=== PATIENT | male | born 1950 | race Caucasian/White ===

== ENCOUNTER 2017-09-11 18:46 | Emergency (ER) | payer MEDICARE, BC ==
[2017-09-11] MEDS ORDERED: Sodium Chloride 0.9% 10 ML Syringe FLUSH PRN (19:38)
[2017-09-11] MEDS ORDERED: Ondansetron 4 MG/2 ML SDV IVPUSH ONE (19:38)
[2017-09-11] MEDS ORDERED: Sodium Chloride 0.9% 500 ML IV ONE (19:39)
[2017-09-11] MEDS ORDERED: HYDROmorphone 1 MG/ML Syringe IVPUSH ONE (19:40)
[2017-09-11] MEDS ORDERED: HYDROmorphone 0.5 MG/0.5 ML Syringe IVPUSH ONE ×2 (19:43→23:01)
--- NOTE | 2017-09-11 19:50 | EDM.PDOC ---
ED HPI GENERAL MEDICAL PROBLEM - General Chief Complaint: Abdominal Pain Stated Complaint: ABDOMINAL PAIN Time Seen by Provider: 09/11/17 19:29 Source of Information: Reports: Patient History Limitations: Reports: No Limitations - History of Present Illness INITIAL COMMENTS - FREE TEXT/NARRATIVE: 67-year-old male presents for evaluation treatment of abdominal pain, nausea and back pain. Patient is a poor historian and does not offer information willingly. Reports he's had abdominal pain for 10 days. States he was recently hospitalized in [place]. Discharged 2 days ago. Unclear if he was discharged or if he left on his own accord. States he was therefore an infection of his gallbladder. He is not currently on any antibiotics. Reports he is having abdominal pain in the lower abdomen currently. Also reports associated nausea. No fevers or vomiting. Reports he had 1 episode of diarrhea this morning. Patient states he is having back pain. Reports that he has chronic back pain. States that this is worse than normal. Duration: Day(s): (10) Location: Reports: Abdomen (lower abdomen), Back Abdominal Pain Score (Numeric/FACES): 7 - Related Data Allergies Allergy/AdvReac Type Severity Reaction Status Date / Time contrast dye Allergy Other Uncoded 09/11/17 19:08 Home Meds: Home Meds Gabapentin [Neurontin] 300 mg PO TID 09/11/17 [History] Levothyroxine. 09/11/17 [History] Sertraline [Zoloft] 50 mg PO DAILY 09/11/17 [History] Zolpidem Tartrate [Zolpidem Tartrate ER] 12.5 mg PO BEDTIME PRN 09/11/17 [ History] Social & Family History - Tobacco Use Smoking Status *Q: Never Smoker - Recreational Drug Use Recreational Drug Use: No ED ROS GENERAL - Review of Systems Review Of Systems: See Below Constitutional: Denies: Fever Cardiovascular: Denies: Chest Pain GI/Abdominal: Reports: Abdominal Pain (lower abdomen), Diarrhea (reports 1 episode of diarrhea), Nausea. Denies: Vomiting Musculoskeletal: Reports: Back Pain (lower back ) ED EXAM, GI/ABD - Physical Exam Exam: See Below Exam Limited By: No Limitations General Appearance: WD/WN, No Apparent Distress, Lethargic, Obese Throat/Mouth: Other (dry lips) Neck: Normal Inspection Respiratory/Chest: No Respiratory Distress, Lungs Clear, Normal Breath Sounds Cardiovascular: Normal Peripheral Pulses, Regular Rate, Rhythm, No Murmur GI/Abdominal Exam: Soft, Non-Tender Back Exam: Normal Inspection Neurological: Inattentive, Slow to Respond Skin Exam: Warm, Dry EKG INTERPRETATION EKG Date: 09/11/17 Time: 22:25 Rate (Beats/Min): 123 [place]: Normal P-Wave: Present QRS: Normal ST-T: Normal QT: Prolonged EKG Interpretation Comments: Sinus tachycardia at 123 bpm. Early "r" wave transition. T wave inversion V3. LAD -9 degrees. Diffuse abnormal repolarization pattern. QT mildly prolonged. Reviewed by myself and Dr. Nguyen. Course - Vital Signs Last Recorded V/S: Last Vital Signs Temp 36.3 C 09/11/17 19:08 Pulse 110 H 09/11/17 19:08 Resp 23 H 09/11/17 19:08 BP 132/99 H 09/11/17 19:08 Pulse Ox 99 09/11/17 19:08 - Orders/Labs/Meds Orders: Active Orders 24 hr Category Date Time Status EKG 12 Lead [EKG Documentation Completion] [RC] STAT Care 09/11/17 22:11 Active Peripheral IV Care [RC] . DIRECTED Care 09/11/17 19:39 Active Abdomen Ltd [US] Stat Exams 09/11/17 21:52 Taken Chest 1V Frontal [CR] Stat Exams 09/11/17 19:38 Taken CULTURE BLOOD [BC] Stat Lab 09/11/17 21:30 Received CULTURE BLOOD [BC] Stat Lab 09/11/17 21:50 Received CULTURE URINE [RM] Stat Lab 09/11/17 22:08 Received Sodium Chloride 0.9% [Normal Saline] 1,000 ml Med 09/11/17 21:13 Active IV ONETIME Sodium Chloride 0.9% [Saline Flush] Med 09/11/17 19:38 Active 10 ml FLUSH ASDIRECTED PRN Blood Culture x2 Reflex Set [OM.PC] Stat Oth 09/11/17 21:02 Ordered Peripheral IV Insertion Adult [OM.PC] Routine Oth 09/11/17 19:37 Ordered Medication Orders Sodium Chloride (Normal Saline) 1,000 mls @ 100 mls/hr IV ONETIME ONE Stop: 09/12/17 07:12 Sodium Chloride (Saline Flush) 10 ml FLUSH ASDIRECTED PRN PRN Reason: Keep Vein Open Last Admin: 09/11/17 19:10 Dose: 10 ml Labs: Laboratory Tests 09/11/17 09/11/17 09/11/17 Range/Units 19:17 19:17 19:17 WBC 14.60 H (4.23-9.07) K/mm3 RBC 4.62 L (4.63-6.08) M/mm3 Hgb 15.1 (13.7-17.5) gm/L Hct 42.6 (40.1-51.0) % MCV 92.2 (79.0-92.2) fl MCH 32.7 H (25.7-32.2) pg MCHC 35.4 (32.2-35.5) g/dl RDW Std Deviation 56.8 H (35.1-43.9) fL Plt Count 232 (163-337) K/mm3 MPV 9.9 (9.4-12.3) fl Neutrophils % (Manual) 86 H (40-60) % Band Neutrophils % 0 (0-10) % Lymphocytes % (Manual) 10 L (20-40) % Atypical Lymphs % 0 % Monocytes % (Manual) 4 (2-10) % Eosinophils % (Manual) 0 L (0.8-7.0) % Basophils % (Manual) 0 L (0.2-1.2) Platelet Estimate Adequate Plt Morphology Comment Normal RBC Morph Comment Normal Sodium 137 (136-145) mEq/L Potassium 3.3 L (3.5-5.1) mEq/L Chloride 98 (98-107) mEq/L Carbon Dioxide 27 (21-32) mEq/L Anion Gap 15.3 H (5-15) BUN 9 (7-18) mg/dL Creatinine 1.1 (0.7-1.3) mg/dL Est Cr Clr Drug Dosing 70.55 mL/min Estimated GFR (MDRD) > 60 (>60) mL/min BUN/Creatinine Ratio 8.2 L (14-18) Glucose 185 H (80-115) mg/dL Lactic Acid (0.4-2.0) mmol/L Calcium 9.6 (8.5-10.1) mg/dL Total Bilirubin 0.9 (0.2-1.0) mg/dL GGT 214 H (15-85) U/L AST 29 (15-37) U/L ALT 35 (16-63) U/L Alkaline Phosphatase 128 H (46-116) U/L C-Reactive Protein 6.1 H* (<1.0) mg/dL NT-Pro-B Natriuret Pep 88 (0-125) pg/mL Total Protein 7.7 (6.4-8.2) g/dl Albumin 3.3 L (3.4-5.0) g/dl Globulin 4.4 gm/dL Albumin/Globulin Ratio 0.8 L (1-2) Lipase 1093 H (73-393) U/L Urine Color (Yellow) Urine Appearance (Clear) Urine pH (5.0-8.0) Ur Specific [place] (1.005-1.030) Urine Protein (Negative) Urine Glucose (UA) (Negative) Urine Ketones (Negative) Urine Occult Blood (Negative) Urine Nitrite (Negative) Urine Bilirubin (Negative) Urine Urobilinogen (0.2-1.0) Ur Leukocyte Esterase (Negative) Urine RBC (0-5) /hpf Urine WBC (0-5) /hpf Ur Epithelial Cells (0-5) /hpf Amorphous Sediment (NOT SEEN) /hpf Urine Bacteria (FEW) /hpf Urine Mucus (FEW) /hpf Urine Opiates Screen (NEGATIVE) Ur Buprenorphine Scrn (NEGATIVE) Ur Oxycodone Screen (NEGATIVE) Urine Methadone Screen (NEGATIVE) Ur Propoxyphene Screen (NEGATIVE) Ur Barbiturates Screen (NEGATIVE) Ur Tricyclics Screen (NEGATIVE) Ur Phencyclidine Scrn (NEGATIVE) Ur Amphetamine Screen (NEGATIVE) U Methamphetamines Scrn (NEGATIVE) U Benzodiazepines Scrn (NEGATIVE) U Cocaine Metab Screen (NEGATIVE) U Marijuana (THC) Screen (NEGATIVE) Ethyl Alcohol 0.02 (0.00) gm% 09/11/17 09/11/17 09/11/17 Range/Units 21:50 22:08 22:08 WBC (4.23-9.07) K/mm3 RBC (4.63-6.08) M/mm3 Hgb (13.7-17.5) gm/L Hct (40.1-51.0) % MCV (79.0-92.2) fl MCH (25.7-32.2) pg MCHC (32.2-35.5) g/dl RDW Std Deviation (35.1-43.9) fL Plt Count (163-337) K/mm3 MPV (9.4-12.3) fl Neutrophils % (Manual) (40-60) % Band Neutrophils % (0-10) % Lymphocytes % (Manual) (20-40) % Atypical Lymphs % % Monocytes % (Manual) (2-10) % Eosinophils % (Manual) (0.8-7.0) % Basophils % (Manual) (0.2-1.2) Platelet Estimate Plt Morphology Comment RBC Morph Comment Sodium (136-145) mEq/L Potassium (3.5-5.1) mEq/L Chloride (98-107) mEq/L Carbon Dioxide (21-32) mEq/L Anion Gap (5-15) BUN (7-18) mg/dL Creatinine (0.7-1.3) mg/dL Est Cr Clr Drug Dosing mL/min Estimated GFR (MDRD) (>60) mL/min BUN/Creatinine Ratio (14-18) Glucose (80-115) mg/dL Lactic Acid 2.7 H (0.4-2.0) mmol/L Calcium (8.5-10.1) mg/dL Total Bilirubin (0.2-1.0) mg/dL GGT (15-85) U/L AST (15-37) U/L ALT (16-63) U/L Alkaline Phosphatase (46-116) U/L C-Reactive Protein (<1.0) mg/dL NT-Pro-B Natriuret Pep (0-125) pg/mL Total Protein (6.4-8.2) g/dl Albumin (3.4-5.0) g/dl Globulin gm/dL Albumin/Globulin Ratio (1-2) Lipase (73-393) U/L Urine Color [place] H (Yellow) Urine Appearance Turbid H (Clear) Urine pH 6.0 (5.0-8.0) Ur Specific [place] > or = 1.030 (1.005-1.030) Urine Protein 2+ H (Negative) Urine Glucose (UA) Negative (Negative) Urine Ketones Trace H (Negative) Urine Occult Blood Negative (Negative) Urine Nitrite Positive H (Negative) Urine Bilirubin 2+ H (Negative) Urine Urobilinogen 2.0 H (0.2-1.0) Ur Leukocyte Esterase Negative (Negative) Urine RBC Not seen (0-5) /hpf Urine WBC 0-5 (0-5) /hpf Ur Epithelial Cells 5-10 H (0-5) /hpf Amorphous Sediment Moderate H (NOT SEEN) /hpf Urine Bacteria Few (FEW) /hpf Urine Mucus Moderate H (FEW) /hpf Urine Opiates Screen Presumptive positive H (NEGATIVE) Ur Buprenorphine Scrn Negative (NEGATIVE) Ur Oxycodone Screen Negative (NEGATIVE) Urine Methadone Screen Presumptive positive H (NEGATIVE) Ur Propoxyphene Screen Negative (NEGATIVE) Ur Barbiturates Screen Negative (NEGATIVE) Ur Tricyclics Screen Negative (NEGATIVE) Ur Phencyclidine Scrn Negative (NEGATIVE) Ur Amphetamine Screen Negative (NEGATIVE) U Methamphetamines Scrn Negative (NEGATIVE) U Benzodiazepines Scrn Presumptive positive H (NEGATIVE) U Cocaine Metab Screen Negative (NEGATIVE) U Marijuana (THC) Screen Negative (NEGATIVE) Ethyl Alcohol (0.00) gm% Meds: Medications Generic Name Dose Route Start Last Admin Trade Name Freq PRN Reason Stop Dose Admin Sodium Chloride 1,000 mls @ 100 mls/hr 09/11/17 21:13 Normal Saline IV 09/12/17 07:12 ONETIME ONE Sodium Chloride 10 ml 09/11/17 19:38 09/11/17 19:10 Saline Flush FLUSH 10 ml ASDIRECTED PRN Administration Keep Vein Open Discontinued Medications Generic Name Dose Route Start Last Admin Trade Name Freq PRN Reason Stop Dose Admin Hydromorphone HCl 1 mg 09/11/17 19:40 Dilaudid IVPUSH 09/11/17 19:41 ONETIME ONE Hydromorphone HCl 0.5 mg 09/11/17 19:43 09/11/17 19:53 Dilaudid IVPUSH 09/11/17 19:44 0.5 mg ONETIME ONE Administration Hydromorphone HCl 0.5 mg 09/11/17 23:01 09/11/17 23:09 Dilaudid IVPUSH 09/11/17 23:02 0.5 mg ONETIME ONE Administration Sodium Chloride 500 mls @ 500 mls/hr 09/11/17 19:39 09/11/17 19:49 Normal Saline IV 09/11/17 20:38 500 mls/hr ONETIME ONE Administration Sodium Chloride 1,000 mls @ 999 mls/hr 09/11/17 23:08 09/11/17 23:46 Normal Saline IV 09/12/17 00:08 999 mls/hr ONETIME ONE Administration Piperacillin Sod/Tazobactam 100 mls @ 200 mls/hr 09/11/17 23:40 09/12/17 00: 08 Sod 4.5 gm/ Sodium Chloride IV 09/12/17 00:09 200 mls/hr ONETIME ONE Administration Ondansetron HCl 4 mg 09/11/17 19:38 09/11/17 19:50 Zofran IVPUSH 09/11/17 19:39 4 mg ONETIME ONE Administration - Radiology Interpretation Free Text/Narrative:: chest 1 view shows an elevated right hemidiaphragm. No acute intrathoracic process. CT of the abdomen and pelvis without contrast (contrast not given due to allergy ) impression per Dr. Ryan: 1. Markedly dilated gallbladder. Etiology not identified on this exam. Ultrasound could be considered to further evaluate. 2. Fatty infiltration within the liver. 3. Insterstital fibrosis and probable atelectasis within both lungs. 4. Other incidental findings. Head Ct without contrast impression per Dr. Ryan : 1. Mild senescent change. No acute intracranial abnormality. Ultrasound of the right upper quadrant abdomen impression for the ride 1. Gallbladder is distended, containing sludge. 2. Liver is probably fatty. - Re-Assessments/Exams Free Text/Narrative Re-Assessment/Exam: 09/11/17 22:40 Reports his abdominal pain has resolved. Continues to have back pain. I reviewed the imaging and lab results with patient. Given his distended gallbladder and his elevated lipase we should get a ultrasound of the right upper quadrant. He will likely need admission to the hospital either here [facility] or in [place]. Patient denies any alcohol use. He denies any alcohol use to me and states he seldom drinks. States He has not had anything today. etoh is 0.02 tonight He does report to me, after questioning about pain medication, that he was on methadone. He states he has not been on methadone for at least few days. I searched the patient on the [place] prescription drug registry. He has received prescriptions for zolpidem, Ativan and methadone. Last refill of methadone was for 180 tabs 10mg on 08-15-17. This was for 30 day supply. Last refill of Ativan was for 60 tabs 0.5 mg on 09-06-17. This is a 30 day supply. Last refill of zolpidem was for 30 tabs 12.5 mg on 09-06-17. This was a 30 day supply. Nursing staff reports he's brought a bag of medication in with him. He did not report any Ativan or methadone in them. He did have a bottle of zolpidem. There are 6 tabs left in it. As stated above he recently had a refill for 30 days planned 09-06-17. 09/12/17 00:21 I reviewed the labs, EKG and imaging results patient. At this point is unclear what exactly is causing his abdominal pain. Reports it is resolved. His lipase is elevated which is concerning for pancreatitis. Is also possible he is withdrawing from his methadone. Also possible he does have some they like acute cholecystitis although it is odd without having a fever or any current pain or jaundice. I discussed the case with Dr. Henry, hospitalist expenditure requisition clerk. She felt that he would require higher-level care given the complex use issues. I discussed the case with [facility] 1 call. They will call me back on them hospitalist available. 09/12/17 00:[address] Larson, hospitalist on-call at [facility]. He agrees to transfer the patient. He has received his IV Zosyn and 1 1/2 L of fluid. Plan will be to run fluids at 130 an hour. Will send by ground ambulance to [facility]. . Departure - Departure Time of Disposition: 00:52 Disposition: DC/Tfer to Acute Hospital 02 Condition: Poor Clinical Impression: Substance abuse, Pancreatitis - Discharge Information Referrals: Harpal Denson MD [Primary Care Provider] - Forms: ED Department Discharge Additional Instructions: Patient to go by ground ambulance to [facility]. Dr. Larson accepting. - My Orders Last 24 Hours: My Active Orders 09/11/17 19:37 Peripheral IV Insertion Adult [OM.PC] Routine 09/11/17 19:38 Chest 1V Frontal [CR] Stat Sodium Chloride 0.9% [Saline Flush] 10 ml FLUSH ASDIRECTED PRN 09/11/17 19:39 Peripheral IV Care [RC] . DIRECTED 09/11/17 21:02 Blood Culture x2 Reflex Set [OM.PC] Stat 09/11/17 21:13 Sodium Chloride 0.9% [Normal Saline] 1,000 ml IV ONETIME 09/11/17 21:30 CULTURE BLOOD [BC] Stat 09/11/17 21:50 CULTURE BLOOD [BC] Stat 09/11/17 21:52 Abdomen Ltd [US] Stat 09/11/17 22:08 CULTURE URINE [RM] Stat 09/11/17 22:11 EKG 12 Lead [EKG Documentation Completion] [RC] STAT - Assessment/Plan Last 24 Hours: My Active Orders 09/11/17 19:37 Peripheral IV Insertion Adult [OM.PC] Routine 09/11/17 19:38 Chest 1V Frontal [CR] Stat Sodium Chloride 0.9% [Saline Flush] 10 ml FLUSH ASDIRECTED PRN 09/11/17 19:39 Peripheral IV Care [RC] . DIRECTED 09/11/17 21:02 Blood Culture x2 Reflex Set [OM.PC] Stat 09/11/17 21:13 Sodium Chloride 0.9% [Normal Saline] 1,000 ml IV ONETIME 09/11/17 21:30 CULTURE BLOOD [BC] Stat 09/11/17 21:50 CULTURE BLOOD [BC] Stat 09/11/17 21:52 Abdomen Ltd [US] Stat 09/11/17 22:08 CULTURE URINE [RM] Stat 09/11/17 22:11 EKG 12 Lead [EKG Documentation Completion] [RC] STAT
[2017-09-11] MEDS ORDERED: Sodium Chloride 0.9% 1,000 ML IV ONE ×2 (21:13→23:08)
--- NOTE | 2017-09-11 21:26 | CT ---
CT abdomen and pelvis Technique: Multiple axial sections were obtained from above the dome of the diaphragm inferiorly to the pubic symphysis. No oral contrast has been given. Intravenous contrast not given due to history of allergy. Findings: Gallbladder is markedly dilated. Fatty infiltration is seen within the liver. No focal abnormality is appreciated within the liver. Spleen appears within normal limits. Visualized lung bases shows fibrosis and probable atelectasis. Adrenal glands show no nodule. Pancreas is unremarkable. Aorta shows atherosclerotic change without aneurysmal dilatation. No retroperitoneal adenopathy or mesenteric abnormalities are seen. No pelvic mass or adenopathy is seen. Mild diverticulosis without diverticulitis is seen within the sigmoid colon. Appendix not seen with certainty. Bone window settings were reviewed which shows scattered degenerative change throughout the spine with mild scoliosis. Small fat-containing umbilical hernia is incidentally noted. Impression: 1. Markedly dilated gallbladder. Etiology not identified on this exam. Ultrasound could be considered to further evaluate. 2. Fatty infiltration within the liver. 3. Interstitial fibrosis and probable atelectasis within both lung bases. 4. Other incidental findings. Diagnostic code #3
--- NOTE | 2017-09-11 21:26 | CT ---
Head CT Technique: Multiple axial sections through the brain were obtained. Intravenous contrast was not utilized. Comparison: No previous intracranial imaging is available. Findings: Ventricles along with basal cisterns and sulci over the convexities are mildly prominent. Minimal diminished density is noted within the periventricular white matter compatible with small vessel ischemic demyelination change. No other abnormal parenchymal densities are seen. No evidence of intracranial hemorrhage. No midline shift or mass effect is seen. Bone window settings were reviewed which shows the visualized sinuses to appear clear. No acute calvarial abnormality is seen. Impression: 1. Mild senescent change. No acute intracranial abnormality is otherwise seen. Diagnostic code #2
[2017-09-11] MEDS ORDERED: Piperacillin/Tazobactam 4.5 GM in Sodium Chloride 0.9% 100 ML IV ONE (23:40)
--- NOTE | 2017-09-12 07:38 | US ---
Limited abdominal ultrasound: Multiple real-time images of the right upper abdomen were obtained. Comparison: Previous CT abdomen and pelvis exam performed earlier on the same day. Technologist's note: Difficult study, limited due to bowel gas Dilated gallbladder is seen containing sludge. No gallbladder wall thickening is seen. Common bile duct not visualized due to bowel gas. Liver is also poorly seen but appears to be somewhat echogenic likely representing fatty infiltration. Right kidney shows no hydronephrosis or mass. Nonvisualized pancreas due to bowel gas. Impression: 1. Dilated gallbladder containing sludge. 2. Fatty infiltration within the liver. 3. Other portions of the abdomen not well seen due to bowel gas. Diagnostic code #3 Agree with preliminary report issued by [employer] ([employer] preliminary report dictated on 09/12/17, 12:22 AM Central Time)
--- NOTE | 2017-09-12 07:38 | CR ---
Chest: Portable view of the chest was obtained. Comparison: No prior chest x-ray. Heart size is normal. Mild tortuosity of the thoracic aorta is seen. Elevated right hemidiaphragm which is likely chronic. Minimal bibasilar atelectasis is seen. Lungs otherwise are clear. Degenerative spurring is noted within the spine. Impression: 1. Mild bibasilar atelectasis. 2. Other incidental findings. Nothing acute is appreciated. Diagnostic code #2
== END 2017-09-12 01:17 ==
LOC: JD.ED 18:46
DX: K85.90 Acute pancreatitis without necrosis or infection, unspecified (principal); F19.10 Other psychoactive substance abuse, uncomplicated; Z79.899 Other long term (current) drug therapy; Z91.041 Radiographic dye allergy status; R53.83 Other fatigue
CPT/HCPCS: 36415; 70450; 71010; 74176; 76705; 80053; 80306; 81001; 82977; 83605; 83690; 83880; 85025; 86140; 87040; 87086; 93005; 96361; 96365; 96375; 99285; G0480; J1170; J2405; J2543; J7030; J7040; J7050; P9612; 93010

== ENCOUNTER 2017-09-17 14:22 | Emergency (ER) | payer MEDICARE, BC ==
[2017-09-17] MEDS ORDERED: Sodium Chloride 0.9% 10 ML Syringe FLUSH PRN ×2 (14:34→16:13)
[2017-09-17] MEDS ORDERED: Naloxone 0.4 MG/ML SDV ONE (14:34)
--- NOTE | 2017-09-17 14:39 | EDM.PDOC ---
ED HPI GENERAL MEDICAL PROBLEM - General Stated Complaint: [facility] Time Seen by Provider: 09/17/17 14:25 Source of Information: Reports: EMS History Limitations: Reports: No Limitations - History of Present Illness INITIAL COMMENTS - FREE TEXT/NARRATIVE: Patient is a 67-year-old male who presents via ambulance with altered mental status. Patient recently had his gallbladder removed this last week in [place] discharged home this past Sunday. Per ambulance crew patient was at home with . Friends came over to see the patient and found him to be altered thus 911 was called with ambulance and law enforcement response. Patient was difficult to arouse. Would not answer questions appropriately. Per PD their is some concern that the patient is receiving inappropriate dosing of narcotics per and daughter. No further details available at this point. - Related Data Allergies Allergy/AdvReac Type Severity Reaction Status Date / Time No Known Allergies Allergy Verified 09/17/17 16:08 Home Meds: Home Meds Gabapentin [Neurontin] 300 mg PO TID 09/11/17 [History] Levothyroxine. 125 mcg PO DAILY 09/11/17 [History] Sertraline [Zoloft] 50 mg PO DAILY 09/11/17 [History] Past Medical History Cardiovascular History: Reports: High Cholesterol Respiratory History: Reports: COPD Gastrointestinal History: Reports: Cholelithiasis Genitourinary History: Reports: Other (See Below) Other Genitourinary History: hypogonadism Psychiatric History: Reports: Anxiety Endocrine/Metabolic History: Reports: Hypothyroidism - Infectious Disease History Infectious Disease History: Reports: C-Difficile - Past Surgical History GI Surgical History: Reports: Appendectomy Social & Family History - Tobacco Use Smoking Status *Q: Never Smoker - Recreational Drug Use Recreational Drug Use: No ED ROS GENERAL - Review of Systems Review Of Systems: Unable To Obtain - Physical Exam Exam: See Below Exam Limited By: Altered Mental Status General Appearance: Lethargic Eye Exam: Bilateral Eye: EOMI (Unable to test patient cannot follow commands), PERRL Ears: Normal External Exam Nose: Normal Inspection Throat/Mouth: Normal Voice, No Airway Compromise Neck: Normal Inspection, Supple Respiratory/Chest: No Respiratory Distress, Lungs Clear, Normal Breath Sounds, No Accessory Muscle Use Cardiovascular: Normal Peripheral Pulses, Tachycardia GI/Abdominal: Normal Bowel Sounds, Soft, No Organomegaly, Tender (Generalized throughout the abdomen with palpation. Patient has surgical incisions to his abdomen from recent gallbladder removal via laparoscopy this past week. All incisions are intact with no drainage or increased redness noted.) Neuro Exam (Abbreviated): Other (Eyes open lethargic moves all extremities does not follow commands completely, localizes pain with sternal rub. No facial droop , tongue deviation.) Back Exam: Normal Inspection Extremities: Normal Inspection, Non-Tender, No Pedal Edema. No: Leg Pain Skin Exam: Warm, Dry, Intact Course - Vital Signs Last Recorded V/S: Last Vital Signs Temp 97.6 F 09/17/17 14:38 Pulse 126 H 09/17/17 14:38 Resp 28 H 09/17/17 14:38 BP 114/86 09/17/17 14:38 Pulse Ox 99 09/17/17 14:38 - Orders/Labs/Meds Orders: Active Orders 24 hr Category Date Time Status EKG Documentation Completion [RC] STAT Care 09/17/17 14:34 Active Peripheral IV Care [RC] . DIRECTED Care 09/17/17 14:34 Active CULTURE BLOOD [BC] Stat Lab 09/17/17 15:20 Received CULTURE BLOOD [BC] Stat Lab 09/17/17 15:27 Received CULTURE URINE [RM] Stat Lab 09/17/17 15:43 Received Blood Culture x2 Reflex Set [OM.PC] Stat Oth 09/17/17 15:04 Ordered Peripheral IV Insertion Adult [OM.PC] Stat Oth 09/17/17 14:34 Ordered Labs: Laboratory Tests 09/17/17 09/17/17 09/17/17 Range/Units 14:30 14:30 14:30 WBC 19.21 H (4.23-9.07) K/mm3 Corrected WBC RBC 4.70 (4.63-6.08) M/mm3 Hgb 15.5 (13.7-17.5) gm/L Hct 43.6 (40.1-51.0) % MCV 92.8 H (79.0-92.2) fl MCH 33.0 H (25.7-32.2) pg MCHC 35.6 H (32.2-35.5) g/dl RDW Std Deviation 56.1 H (35.1-43.9) fL Plt Count 341 H (163-337) K/mm3 MPV 10.5 (9.4-12.3) fl Neut % (Auto) 83.2 H (34.0-67.9) % Lymph % (Auto) 7.3 L (21.8-53.1) % Schley % (Auto) 7.7 (5.3-12.2) % Eos % (Auto) 0.1 L (0.8-7.0) Baso % (Auto) 0.4 (0.1-1.2) % Neut # (Auto) 15.98 H (1.78-5.38) K/mm3 Lymph # (Auto) 1.41 (1.32-3.57) K/mm3 Schley # (Auto) 1.48 H (0.30-0.82) K/mm3 Eos # (Auto) 0.01 L (0.04-0.54) K/mm3 Baso # (Auto) 0.08 (0.01-0.08) K/mm3 Neutrophils % (Manual) Cancelled Band Neutrophils % Cancelled Lymphocytes % (Manual) Cancelled Atypical Lymphs % Cancelled Immat Monocytes % (Man) Cancelled Monocytes % (Manual) Cancelled Eosinophils % (Manual) Cancelled Basophils % (Manual) Cancelled Metamyelocytes % Cancelled Myelocytes % Cancelled Promyelocytes % Cancelled Blast Cells % Cancelled Plasma Cell % (Manual) Cancelled Immature Gran # Cancelled Absolute Neutrophils Cancelled Absolute Seg Neuts Cancelled Band Neutrophils # Cancelled Lymphocytes # (Manual) Cancelled Monocytes # (Manual) Cancelled Eosinophils # (Manual) Cancelled Basophils # (Manual) Cancelled Absolute Metamyelocyte Cancelled Absolute Myelocytes Cancelled Absolute Promyelocytes Cancelled Absolute Plasma Cells Cancelled Nucleated RBCs Cancelled Differential Comment Cancelled Manual Slide Review Abnormal smear Hypersegmented Neuts Cancelled Atypical Lymphocytes Cancelled Vacuolated Monocytes Cancelled Absolute Blast Cells Cancelled Toxic Granulation Cancelled Dohle Bodies Cancelled Pelger-Huet Cells Cancelled Megakaryocytic Frags Cancelled Roula Rods Cancelled WBC Morphology Comment Cancelled Platelet Estimate Cancelled Clumped Platelets Cancelled Giant Platelets Cancelled Plt Morphology Comment Cancelled Polychromasia Cancelled Hypochromasia Cancelled Poikilocytosis Cancelled Basophilic Stippling Cancelled Anisocytosis Cancelled Microcytosis Cancelled Macrocytosis Cancelled Spherocytes Cancelled Pappenheimer Bodies Cancelled Sickle Cells Cancelled Target Cells Cancelled Tear Drop Cells Cancelled Ovalocytes Cancelled Stomatocytes Cancelled Helmet Cells Cancelled Pulliam-Stannards Bodies Cancelled [place] Rings Cancelled Guide Rock Cells Cancelled Elliptocytes Cancelled Acanthocytes (Spur) Cancelled Rouleaux Cancelled Hemoglobin C Crystals Cancelled Schistocytes Cancelled RBC Morph Comment Cancelled Smear Path Review Cancelled Joe Bodies Cancelled PT 14.0 H (8.0-13.0) SECONDS INR 1.27 D-Dimer, Quantitative (0.19-0.59) mg/L Puncture Site ABG pH (7.35-7.45) ABG pCO2 (35.0-45.0) mmHg ABG pO2 (80.0-100.0) mmHg ABG HCO3 (22.0-26.0) meq/L ABG O2 Saturation (96.0-97.0) % ABG Base Excess (-2-2.0) A-a Gradient mmHg O2 Delivery Device FiO2 (21.00-100.00) % Sodium 138 (136-145) mEq/L Potassium 3.2 L (3.5-5.1) mEq/L Chloride 97 L (98-107) mEq/L Carbon Dioxide 27 (21-32) mEq/L Anion Gap 17.2 H (5-15) BUN 30 H (7-18) mg/dL Creatinine 1.7 H (0.7-1.3) mg/dL Est Cr Clr Drug Dosing 45.65 mL/min Estimated GFR (MDRD) 40 (>60) mL/min BUN/Creatinine Ratio 17.6 (14-18) Glucose 189 H (80-115) mg/dL POC Glucose (80-115) mg/dL Lactic Acid (0.4-2.0) mmol/L Calcium 9.7 (8.5-10.1) mg/dL Total Bilirubin 1.5 H (0.2-1.0) mg/dL AST 35 (15-37) U/L ALT 35 (16-63) U/L Alkaline Phosphatase 126 H (46-116) U/L Troponin I 0.118 H* (0.00-0.056) ng/mL C-Reactive Protein 4.3 H* (<1.0) mg/dL NT-Pro-B Natriuret Pep (0-125) pg/mL Total Protein 8.1 (6.4-8.2) g/dl Albumin 3.6 (3.4-5.0) g/dl Globulin 4.5 gm/dL Albumin/Globulin Ratio 0.8 L (1-2) Lipase 2645 H (73-393) U/L TSH 3rd Generation 2.838 (0.358-3.74) uIU/mL Urine Color (Yellow) Urine Appearance (Clear) Urine pH (5.0-8.0) Ur Specific [place] (1.005-1.030) Urine Protein (Negative) Urine Glucose (UA) (Negative) Urine Ketones (Negative) Urine Occult Blood (Negative) Urine Nitrite (Negative) Urine Bilirubin (Negative) Urine Urobilinogen (0.2-1.0) Ur Leukocyte Esterase (Negative) Urine RBC (0-5) /hpf Urine WBC (0-5) /hpf Ur Epithelial Cells (0-5) /hpf Urine Bacteria (FEW) /hpf Urine Mucus (FEW) /hpf Urine Opiates Screen (NEGATIVE) Ur Buprenorphine Scrn (NEGATIVE) Ur Oxycodone Screen (NEGATIVE) Urine Methadone Screen (NEGATIVE) Ur Propoxyphene Screen (NEGATIVE) Ur Barbiturates Screen (NEGATIVE) Ur Tricyclics Screen (NEGATIVE) Ur Phencyclidine Scrn (NEGATIVE) Ur Amphetamine Screen (NEGATIVE) U Methamphetamines Scrn (NEGATIVE) U Benzodiazepines Scrn (NEGATIVE) U Cocaine Metab Screen (NEGATIVE) U Marijuana (THC) Screen (NEGATIVE) Ethyl Alcohol 0.00 (0.00) gm% Slides for Path Review Cancelled 09/17/17 09/17/17 09/17/17 Range/Units 14:30 14:30 14:30 WBC 19.21 H (4.23-9.07) K/mm3 Corrected WBC Premium [employer]itor RBC 4.70 (4.63-6.08) M/mm3 Hgb 15.5 (13.7-17.5) gm/L Hct 43.6 (40.1-51.0) % MCV 92.8 H (79.0-92.2) fl MCH 33.0 H (25.7-32.2) pg MCHC 35.6 H (32.2-35.5) g/dl RDW Std Deviation 56.1 H (35.1-43.9) fL Plt Count 341 H (163-337) K/mm3 MPV 10.5 (9.4-12.3) fl Neut % (Auto) (34.0-67.9) % Lymph % (Auto) (21.8-53.1) % Schley % (Auto) (5.3-12.2) % Eos % (Auto) (0.8-7.0) Baso % (Auto) (0.1-1.2) % Neut # (Auto) (1.78-5.38) K/mm3 Lymph # (Auto) (1.32-3.57) K/mm3 Schley # (Auto) (0.30-0.82) K/mm3 Eos # (Auto) (0.04-0.54) K/mm3 Baso # (Auto) (0.01-0.08) K/mm3 Neutrophils % (Manual) 86 H Band Neutrophils % 0 Lymphocytes % (Manual) 6 L Atypical Lymphs % 0 Immat Monocytes % (Man) Premium Auditor Monocytes % (Manual) 8 Eosinophils % (Manual) 0 L Basophils % (Manual) 0 L Metamyelocytes % Premium [employer]itor Myelocytes % Premium [employer]itor Promyelocytes % [employer]itor Blast Cells % Premium [employer]itor Plasma Cell % (Manual) Premium Auditor Immature Gran # Premium [employer]itor Absolute Neutrophils Premium Auditor Absolute Seg Neuts Premium Auditor Band Neutrophils # Premium [employer]itor Lymphocytes # (Manual) Premium Auditor Monocytes # (Manual) Premium Auditor Eosinophils # (Manual) Premium Auditor Basophils # (Manual) Premium Auditor Absolute Metamyelocyte Premium Auditor Absolute Myelocytes Premium Auditor Absolute Promyelocytes Premium Auditor Absolute Plasma Cells Premium Auditor Nucleated RBCs Premium Auditor Differential Comment Premium Auditor Manual Slide Review Hypersegmented Neuts Premium Auditor Atypical Lymphocytes Premium Auditor Vacuolated Monocytes Premium Auditor Absolute Blast Cells Premium [employer]itor Toxic Granulation Few Dohle Bodies Premium [employer]itor Pelger-Huet Cells Premium [employer]itor Megakaryocytic Frags Premium [employer]itor Roula Rods Premium [employer]itor WBC Morphology Comment Premium [employer]itor Platelet Estimate Adequate Clumped Platelets Premium Auditor Giant Platelets Premium [employer]itor Plt Morphology Comment Premium [employer]itor Polychromasia Few Hypochromasia Premium [employer]itor Poikilocytosis 1+ slight Basophilic Stippling Premium [employer]itor Anisocytosis 1+ slight Microcytosis 1+ slight Macrocytosis Premium [employer]itor Spherocytes Premium [employer]itor Pappenheimer Bodies [employer] Sickle Cells Premium [employer]itor Target Cells Premium Auditor Tear Drop Cells Premium Auditor Ovalocytes Premium [employer]itor Stomatocytes Premium Auditor Helmet Cells Premium Auditor Pulliam-Stannards Bodies Premium Auditor [place] Rings Premium Auditor Kt Cells Premium Auditor Elliptocytes Premium [employer]itor Acanthocytes (Spur) Premium Auditor Rouleaux Premium [employer]itor Hemoglobin C Crystals [employer] Schistocytes Premium [employer]itor RBC Morph Comment Premium [employer] Smear Path Review Premium Auditor Joe Bodies Premium [employer]itor PT (8.0-13.0) SECONDS INR D-Dimer, Quantitative 1.75 H (0.19-0.59) mg/L Puncture Site ABG pH (7.35-7.45) ABG pCO2 (35.0-45.0) mmHg ABG pO2 (80.0-100.0) mmHg ABG HCO3 (22.0-26.0) meq/L ABG O2 Saturation (96.0-97.0) % ABG Base Excess (-2-2.0) A-a Gradient mmHg O2 Delivery Device FiO2 (21.00-100.00) % Sodium (136-145) mEq/L Potassium (3.5-5.1) mEq/L Chloride (98-107) mEq/L Carbon Dioxide (21-32) mEq/L Anion Gap (5-15) BUN (7-18) mg/dL Creatinine (0.7-1.3) mg/dL Est Cr Clr Drug Dosing mL/min Estimated GFR (MDRD) (>60) mL/min BUN/Creatinine Ratio (14-18) Glucose (80-115) mg/dL POC Glucose (80-115) mg/dL Lactic Acid (0.4-2.0) mmol/L Calcium (8.5-10.1) mg/dL Total Bilirubin (0.2-1.0) mg/dL AST (15-37) U/L ALT (16-63) U/L Alkaline Phosphatase (46-116) U/L Troponin I (0.00-0.056) ng/mL C-Reactive Protein (<1.0) mg/dL NT-Pro-B Natriuret Pep 823 H (0-125) pg/mL Total Protein (6.4-8.2) g/dl Albumin (3.4-5.0) g/dl Globulin gm/dL Albumin/Globulin Ratio (1-2) Lipase (73-393) U/L TSH 3rd Generation (0.358-3.74) uIU/mL Urine Color (Yellow) Urine Appearance (Clear) Urine pH (5.0-8.0) Ur Specific [place] (1.005-1.030) Urine Protein (Negative) Urine Glucose (UA) (Negative) Urine Ketones (Negative) Urine Occult Blood (Negative) Urine Nitrite (Negative) Urine Bilirubin (Negative) Urine Urobilinogen (0.2-1.0) Ur Leukocyte Esterase (Negative) Urine RBC (0-5) /hpf Urine WBC (0-5) /hpf Ur Epithelial Cells (0-5) /hpf Urine Bacteria (FEW) /hpf Urine Mucus (FEW) /hpf Urine Opiates Screen (NEGATIVE) Ur Buprenorphine Scrn (NEGATIVE) Ur Oxycodone Screen (NEGATIVE) Urine Methadone Screen (NEGATIVE) Ur Propoxyphene Screen (NEGATIVE) Ur Barbiturates Screen (NEGATIVE) Ur Tricyclics Screen (NEGATIVE) Ur Phencyclidine Scrn (NEGATIVE) Ur Amphetamine Screen (NEGATIVE) U Methamphetamines Scrn (NEGATIVE) U Benzodiazepines Scrn (NEGATIVE) U Cocaine Metab Screen (NEGATIVE) U Marijuana (THC) Screen (NEGATIVE) Ethyl Alcohol (0.00) gm% Slides for Path Review Premium Auditor 09/17/17 09/17/17 09/17/17 Range/Units 14:32 15:20 15:27 WBC (4.23-9.07) K/mm3 Corrected WBC RBC (4.63-6.08) M/mm3 Hgb (13.7-17.5) gm/L Hct (40.1-51.0) % MCV (79.0-92.2) fl MCH (25.7-32.2) pg MCHC (32.2-35.5) g/dl RDW Std Deviation (35.1-43.9) fL Plt Count (163-337) K/mm3 MPV (9.4-12.3) fl Neut % (Auto) (34.0-67.9) % Lymph % (Auto) (21.8-53.1) % Schley % (Auto) (5.3-12.2) % Eos % (Auto) (0.8-7.0) Baso % (Auto) (0.1-1.2) % Neut # (Auto) (1.78-5.38) K/mm3 Lymph # (Auto) (1.32-3.57) K/mm3 Schley # (Auto) (0.30-0.82) K/mm3 Eos # (Auto) (0.04-0.54) K/mm3 Baso # (Auto) (0.01-0.08) K/mm3 Neutrophils % (Manual) Band Neutrophils % Lymphocytes % (Manual) Atypical Lymphs % Immat Monocytes % (Man) Monocytes % (Manual) Eosinophils % (Manual) Basophils % (Manual) Metamyelocytes % Myelocytes % Promyelocytes % Blast Cells % Plasma Cell % (Manual) Immature Gran # Absolute Neutrophils Absolute Seg Neuts Band Neutrophils # Lymphocytes # (Manual) Monocytes # (Manual) Eosinophils # (Manual) Basophils # (Manual) Absolute Metamyelocyte Absolute Myelocytes Absolute Promyelocytes Absolute Plasma Cells Nucleated RBCs Differential Comment Manual Slide Review Hypersegmented Neuts Atypical Lymphocytes Vacuolated Monocytes Absolute Blast Cells Toxic Granulation Dohle Bodies Pelger-Huet Cells Megakaryocytic Frags Roula Rods WBC Morphology Comment Platelet Estimate Clumped Platelets Giant Platelets Plt Morphology Comment Polychromasia Hypochromasia Poikilocytosis Basophilic Stippling Anisocytosis Microcytosis Macrocytosis Spherocytes Pappenheimer Bodies Sickle Cells Target Cells Tear Drop Cells Ovalocytes Stomatocytes Helmet Cells Pulliam-Stannards Bodies [place] Rings Guide Rock Cells Elliptocytes Acanthocytes (Spur) Rouleaux Hemoglobin C Crystals Schistocytes RBC Morph Comment Smear Path Review Joe Bodies PT (8.0-13.0) SECONDS INR D-Dimer, Quantitative (0.19-0.59) mg/L Puncture Site Lt radial ABG pH 7.56 H (7.35-7.45) ABG pCO2 21.5 L (35.0-45.0) mmHg ABG pO2 73.0 L (80.0-100.0) mmHg ABG HCO3 19.1 L (22.0-26.0) meq/L ABG O2 Saturation 95.9 L (96.0-97.0) % ABG Base Excess -1.0 (-2-2.0) A-a Gradient 34 mmHg O2 Delivery Device Room air FiO2 21.00 (21.00-100.00) % Sodium (136-145) mEq/L Potassium (3.5-5.1) mEq/L Chloride (98-107) mEq/L Carbon Dioxide (21-32) mEq/L Anion Gap (5-15) BUN (7-18) mg/dL Creatinine (0.7-1.3) mg/dL Est Cr Clr Drug Dosing mL/min Estimated GFR (MDRD) (>60) mL/min BUN/Creatinine Ratio (14-18) Glucose (80-115) mg/dL POC Glucose 189 H (80-115) mg/dL Lactic Acid 2.7 H (0.4-2.0) mmol/L Calcium (8.5-10.1) mg/dL Total Bilirubin (0.2-1.0) mg/dL AST (15-37) U/L ALT (16-63) U/L Alkaline Phosphatase (46-116) U/L Troponin I (0.00-0.056) ng/mL C-Reactive Protein (<1.0) mg/dL NT-Pro-B Natriuret Pep (0-125) pg/mL Total Protein (6.4-8.2) g/dl Albumin (3.4-5.0) g/dl Globulin gm/dL Albumin/Globulin Ratio (1-2) Lipase (73-393) U/L TSH 3rd Generation (0.358-3.74) uIU/mL Urine Color (Yellow) Urine Appearance (Clear) Urine pH (5.0-8.0) Ur Specific [place] (1.005-1.030) Urine Protein (Negative) Urine Glucose (UA) (Negative) Urine Ketones (Negative) Urine Occult Blood (Negative) Urine Nitrite (Negative) Urine Bilirubin (Negative) Urine Urobilinogen (0.2-1.0) Ur Leukocyte Esterase (Negative) Urine RBC (0-5) /hpf Urine WBC (0-5) /hpf Ur Epithelial Cells (0-5) /hpf Urine Bacteria (FEW) /hpf Urine Mucus (FEW) /hpf Urine Opiates Screen (NEGATIVE) Ur Buprenorphine Scrn (NEGATIVE) Ur Oxycodone Screen (NEGATIVE) Urine Methadone Screen (NEGATIVE) Ur Propoxyphene Screen (NEGATIVE) Ur Barbiturates Screen (NEGATIVE) Ur Tricyclics Screen (NEGATIVE) Ur Phencyclidine Scrn (NEGATIVE) Ur Amphetamine Screen (NEGATIVE) U Methamphetamines Scrn (NEGATIVE) U Benzodiazepines Scrn (NEGATIVE) U Cocaine Metab Screen (NEGATIVE) U Marijuana (THC) Screen (NEGATIVE) Ethyl Alcohol (0.00) gm% Slides for Path Review 09/17/17 09/17/17 Range/Units 15:43 15:43 WBC (4.23-9.07) K/mm3 Corrected WBC RBC (4.63-6.08) M/mm3 Hgb (13.7-17.5) gm/L Hct (40.1-51.0) % MCV (79.0-92.2) fl MCH (25.7-32.2) pg MCHC (32.2-35.5) g/dl RDW Std Deviation (35.1-43.9) fL Plt Count (163-337) K/mm3 MPV (9.4-12.3) fl Neut % (Auto) (34.0-67.9) % Lymph % (Auto) (21.8-53.1) % Schley % (Auto) (5.3-12.2) % Eos % (Auto) (0.8-7.0) Baso % (Auto) (0.1-1.2) % Neut # (Auto) (1.78-5.38) K/mm3 Lymph # (Auto) (1.32-3.57) K/mm3 Schley # (Auto) (0.30-0.82) K/mm3 Eos # (Auto) (0.04-0.54) K/mm3 Baso # (Auto) (0.01-0.08) K/mm3 Neutrophils % (Manual) Band Neutrophils % Lymphocytes % (Manual) Atypical Lymphs % Immat Monocytes % (Man) Monocytes % (Manual) Eosinophils % (Manual) Basophils % (Manual) Metamyelocytes % Myelocytes % Promyelocytes % Blast Cells % Plasma Cell % (Manual) Immature Gran # Absolute Neutrophils Absolute Seg Neuts Band Neutrophils # Lymphocytes # (Manual) Monocytes # (Manual) Eosinophils # (Manual) Basophils # (Manual) Absolute Metamyelocyte Absolute Myelocytes Absolute Promyelocytes Absolute Plasma Cells Nucleated RBCs Differential Comment Manual Slide Review Hypersegmented Neuts Atypical Lymphocytes Vacuolated Monocytes Absolute Blast Cells Toxic Granulation Dohle Bodies Pelger-Huet Cells Megakaryocytic Frags Roula Rods WBC Morphology Comment Platelet Estimate Clumped Platelets Giant Platelets Plt Morphology Comment Polychromasia Hypochromasia Poikilocytosis Basophilic Stippling Anisocytosis Microcytosis Macrocytosis Spherocytes Pappenheimer Bodies Sickle Cells Target Cells Tear Drop Cells Ovalocytes Stomatocytes Helmet Cells Pulliam-Stannards Bodies [place] Rings Kt Cells Elliptocytes Acanthocytes (Spur) Rouleaux Hemoglobin C Crystals Schistocytes RBC Morph Comment Smear Path Review Joe Bodies PT (8.0-13.0) SECONDS INR D-Dimer, Quantitative (0.19-0.59) mg/L Puncture Site ABG pH (7.35-7.45) ABG pCO2 (35.0-45.0) mmHg ABG pO2 (80.0-100.0) mmHg ABG HCO3 (22.0-26.0) meq/L ABG O2 Saturation (96.0-97.0) % ABG Base Excess (-2-2.0) A-a Gradient mmHg O2 Delivery Device FiO2 (21.00-100.00) % Sodium (136-145) mEq/L Potassium (3.5-5.1) mEq/L Chloride (98-107) mEq/L Carbon Dioxide (21-32) mEq/L Anion Gap (5-15) BUN (7-18) mg/dL Creatinine (0.7-1.3) mg/dL Est Cr Clr Drug Dosing mL/min Estimated GFR (MDRD) (>60) mL/min BUN/Creatinine Ratio (14-18) Glucose (80-115) mg/dL POC Glucose (80-115) mg/dL Lactic Acid (0.4-2.0) mmol/L Calcium (8.5-10.1) mg/dL Total Bilirubin (0.2-1.0) mg/dL AST (15-37) U/L ALT (16-63) U/L Alkaline Phosphatase (46-116) U/L Troponin I (0.00-0.056) ng/mL C-Reactive Protein (<1.0) mg/dL NT-Pro-B Natriuret Pep (0-125) pg/mL Total Protein (6.4-8.2) g/dl Albumin (3.4-5.0) g/dl Globulin gm/dL Albumin/Globulin Ratio (1-2) Lipase (73-393) U/L TSH 3rd Generation (0.358-3.74) uIU/mL Urine Color Yellow (Yellow) Urine Appearance Clear (Clear) Urine pH 7.0 (5.0-8.0) Ur Specific [place] 1.025 (1.005-1.030) Urine Protein 2+ H (Negative) Urine Glucose (UA) Negative (Negative) Urine Ketones 2+ H (Negative) Urine Occult Blood Negative (Negative) Urine Nitrite Negative (Negative) Urine Bilirubin 2+ H (Negative) Urine Urobilinogen 2.0 H (0.2-1.0) Ur Leukocyte Esterase Negative (Negative) Urine RBC 0-5 (0-5) /hpf Urine WBC 0-5 (0-5) /hpf Ur Epithelial Cells 0-5 (0-5) /hpf Urine Bacteria Few (FEW) /hpf Urine Mucus Not seen (FEW) /hpf Urine Opiates Screen Presumptive positive H (NEGATIVE) Ur Buprenorphine Scrn Negative (NEGATIVE) Ur Oxycodone Screen Negative (NEGATIVE) Urine Methadone Screen Presumptive positive H (NEGATIVE) Ur Propoxyphene Screen Negative (NEGATIVE) Ur Barbiturates Screen Negative (NEGATIVE) Ur Tricyclics Screen Negative (NEGATIVE) Ur Phencyclidine Scrn Negative (NEGATIVE) Ur Amphetamine Screen Negative (NEGATIVE) U Methamphetamines Scrn Negative (NEGATIVE) U Benzodiazepines Scrn Presumptive positive H (NEGATIVE) U Cocaine Metab Screen Negative (NEGATIVE) U Marijuana (THC) Screen Negative (NEGATIVE) Ethyl Alcohol (0.00) gm% Slides for Path Review Meds: Medications Discontinued Medications Generic Name Dose Route Start Last Admin Trade Name Freq PRN Reason Stop Dose Admin Sodium Chloride 1,000 mls @ 150 mls/hr 09/17/17 14:45 09/17/17 15:21 Normal Saline IV 150 mls/hr ASDIRECTED CASSIDY Administration Sodium Chloride 500 mls @ 999 mls/hr 09/17/17 15:23 09/17/17 18:00 Normal Saline IV 09/17/17 15:53 999 mls/hr .BOLUS ONE Administration Sodium Chloride 100 mls @ 65 mls/hr 09/17/17 16:15 09/17/17 16:48 Normal Saline IV 40 mls/hr ASDIRECTED CASSIDY Administration Levofloxacin/Dextrose 750 mg/ 150 mls @ 100 mls/hr 09/17/17 17:07 Premix IV 09/17/17 18:36 ONETIME ONE Meropenem 1 gm/ Sodium 100 mls @ 200 mls/hr 09/17/17 17:50 09/17/17 18:41 Chloride IV 09/17/17 18:19 200 mls/hr ONETIME ONE Administration Sodium Chloride 500 mls @ 999 mls/hr 09/17/17 17:50 Normal Saline IV 09/17/17 18:20 .BOLUS ONE Vancomycin HCl 1 gm/ Sodium 250 mls @ 250 mls/hr 09/17/17 17:50 09/17/17 19: 15 Chloride IV 09/17/17 18:49 Not Given ONETIME ONE Sodium Chloride 500 mls @ 999 mls/hr 09/17/17 17:51 Normal Saline IV 09/17/17 18:21 .BOLUS ONE Sodium Chloride Confirm 09/17/17 18:50 09/17/17 19:15 Normal Saline Administered 09/17/17 18:51 Not Given Dose 250 mls @ as directed .ROUTE .STK-MED ONE Vancomycin HCl 1 gm/ Sodium 250 mls @ 250 mls/hr 09/17/17 18:50 09/17/17 18: 55 Chloride IV 09/17/17 19:49 250 mls/hr ONETIME ONE Administration Iopamidol 100 ml 09/17/17 16:13 09/17/17 16:48 Isovue-370 (76%) IVPUSH 09/17/17 16:14 100 ml ONETIME ONE Administration Iopamidol 25 ml 09/17/17 16:46 09/17/17 16:48 Isovue-370 (76%) IVPUSH 09/17/17 16:47 25 ml ONETIME ONE Administration Naloxone HCl Confirm 09/17/17 14:34 09/17/17 14:39 Narcan Administered 09/17/17 14:35 0.4 mg Dose Administration 0.4 mg .ROUTE .STK-MED ONE Naloxone HCl 1 mg 09/17/17 15:09 09/17/17 15:24 Narcan IVPUSH 09/17/17 15:10 Not Given ONETIME ONE Naloxone HCl Confirm 09/17/17 15:20 09/17/17 15:23 Narcan Administered 09/17/17 15:21 1 mg Dose Administration 2 mg .ROUTE .STK-MED ONE Sodium Chloride 10 ml 09/17/17 14:34 Saline Flush FLUSH ASDIRECTED PRN Keep Vein Open Sodium Chloride 10 ml 09/17/17 16:13 09/17/17 16:48 Saline Flush FLUSH 10 ml ONETIME PRN Administration IV FLUSH Vancomycin HCl Confirm 09/17/17 18:49 09/17/17 19:15 Vancocin Administered 09/17/17 18:50 Not Given Dose 1 gm .ROUTE .STK-MED ONE - Re-Assessments/Exams Free Text/Narrative Re-Assessment/Exam: Vital signs 114/86 heart rate 114, 98% on room air. On examination patient's eyes are open localizes painful stimuli to the chest with intermittent ability to answer questions. No facial droop, no tongue deviation, eyes are PERRL, moves all extremities. Neurological testing limited secondary to current condition. Suspect this is related to opioid use. Narcan 0.4 mg has been ordered IV. Initial labs and studies include CBC, chem 14, CRP, d-dimer, urine drug tox, serum EtOH, coag studies, lipase, troponin, TSH, UA, head CT without contrast, EKG, chest x-ray, and abdominal x-ray. D-dimer will be obtained with patient's recent history of surgery on hospitalization with tachycardia and elevated breathing rate. 1442 Narcan 0.4 mg IVP pushed with really no mental status change. CT of the head is pending. Blood sugar 189. I will order ABG and blood cultures x 2. 09/17/17 15:09 CT of the head did not reveal any acute intracranial hemorrhage. Final interpretation pending. Due to patient's mentation status with no improvement with narcan 0.4 mg IVP will order an additional 1 mg of Narcan. Their is suspicion that patient has been given inappropriate administeration of narcotics by his . Law enforcement is investigating. EKG obtained today is Sinus tachycardia [address] depression in the lateral leads and QTc of 510. In comparison to previous EKG obtained September 11, 2017 revealed changes today in the lateral leads are more prominent. Reviewed previous ED visit dated 09/11/2017. Patient admitted being on methadone for the past few days. Patient has a prescription for zolpidem, Ativan, and methadone. Last refill of methadone was 180 tabs 10 mg on August 15, 2017. This was a 30 day supply. Last Ativan refill was for 60 tabs 0.5 mg 09/06/17 this was for 30 day supply as well. Last refill for zolpidem was 30 tablet 12.5 mg on 09-21 this with a 30 supply as well. Patient did not report Ativan or methadone use as well. He had 6 bottles of zolpidem tabs remaining in the bottle. As stated patient had refill for 30 days planned 09/06/2017. Again patient on admission to the ED does not provide position bottles for methadone or Ativan. Labs reviewed: White blood cell count 19.21, hemoglobin 15.5, with a count 341, neutrophil percent is 83.2, neutrophil number is 15.98, coag studies PT 14, INR 1.27, d-dimer 1.75, potassium 3.2, chloride 27, AG 17.2, BUN 30, creatinine 1.7 , glucose 189, alk phosphatase 126, troponin 0.118, CRP 4.3, TSH 2.83, lipase pending, serum EtOH 0.00. Unable to perform CT angiogram due to presumably IV contrast allergy. Urine drug tox and UA pending. I did order 500 bolus of saline. Patient does not appear to be fluid overloaded. ProBNP is pending. Chest x-ray revealed poor inspiratory effort, bibasilar atelectasis, no acute findings noted. Compared to previous chest x-ray with no new changes. Final interpretation is pending. 09/17/17 15:36 Per nursing staff 1 mg of Narcan did not improve his mentation. Patient did have episode of loose stool unable to catch. He does have history of C. difficile. Per nursing stool did not appear to be concerning for C. difficile. 09/17/17 16:02 Will obtain CTA of the chest abdomen and pelvis. I contacted [facility] one call and they reviewed previous discharged summary. Patient was discharged with methadone and Ambien along with Celebrex and Synthroid. Allergies to IV and oral contrast causes kidney problems. No anaphylaxis. Spoke with Dr. Garay institutional aide Hospitalists to review recent hospitalization and discuss patients current condition. Agrees to proceed with CTA of the chest/ abdomen/pelvis although kidney issues would be appropriate. HR trending downward 103 after initial bolus of fluid. WIll obtain manual diff to faciliate decision for starting broad spectrum antibiotics. Discussed this with Dr. Luna he agrees on the fence at this time if infectious or not. I am concerned patient is septic. Pro BNP 823 which is a increase from 88 from 09/11/2017. UA revealed orange color, turbid, sick ready graveyard them 1.030, protein 2+, trace ketones, positive nitrates, bilirubin 2+, urobilinogen 2.0, RBCs not seeing wbc's 0-5 epithelials cells 5-10 moderate amorphous sediment moderate mucus. Urine drug tox positive for opiates, methadone, and benzodiazepines. Initial review of CT of the chest concerning for right lobar pneumonia. Ordered Levaquin 750 mg IV. 09/17/17 17:09 CT chest impression: No findings of pulmonary embolism. Fibrosis within both lungs with areas of scarring and atelectasis within both lung bases. Other incidental findings as noted above. Canceled Levaquin 750 mg IV. Awaiting for impression of CT the abdomen. Manual bands reported 0. Further indicating leukocytosis as a cause of stress response rather than infectious in nature. CT abdomen and pelvis impression: Interval cholecystectomy from prior CT exam. Mild increased density within the gallbladder bed most likely postsurgical in etiology. Fatty infiltration within the liver and other incidental findings. Nothing acute is appreciated on CT study of the abdomen and pelvis. Ambulance has been contacted for transfer. [address] [facility] one call and waited 10 minutes prior to hanging up. Will call back in 15 minutes. 09/17/17 17:37 [facility] call called back. Spoke with Dr. Heredia. Discussed patient with him. Findings concerning for acute pancreatitis. Appears patient may be septic with lab findings. Ordered meropenem and vancomycin. In addition will administer additional 500 mls bolus of NS with reassessment, another 500 bolus of NS, and then maintenance 150 mls per hour. Difficult to diagnose as acute pancreatitis when no inflammatory changes are noted on CT of the abdomen. Patient does have generalized discomfort to his abdomen status post cholecystectomy and also elevated lipase 3 times normal limits. Prior to him as transfer the patient patient was more alert and responding more appropriately. He remains confused. Departure - Departure Time of Disposition: 18:56 Disposition: DC/Tfer to [facility] 02 Condition: Poor Clinical Impression: Elevated troponin, Respiratory alkalosis, Positive urine drug screen, Acute kidney injury, Hypokalemia, Septicemia Altered mental status Qualifiers: Altered mental status type: somnolence Qualified Code(s): R40.0 - Somnolence - Discharge Information Referrals: PCP,Not In Area [Primary Care Provider] - Forms: ED Department Discharge - My Orders Last 24 Hours: My Active Orders 09/17/17 14:34 EKG Documentation Completion [RC] STAT Peripheral IV Care [RC] . DIRECTED Peripheral IV Insertion Adult [OM.PC] Stat 09/17/17 15:04 Blood Culture x2 Reflex Set [OM.PC] Stat 09/17/17 15:20 CULTURE BLOOD [BC] Stat 09/17/17 15:27 CULTURE BLOOD [BC] Stat 09/17/17 15:43 CULTURE URINE [RM] Stat - Assessment/Plan Last 24 Hours: My Active Orders 09/17/17 14:34 EKG Documentation Completion [RC] STAT Peripheral IV Care [RC] . DIRECTED Peripheral IV Insertion Adult [OM.PC] Stat 09/17/17 15:04 Blood Culture x2 Reflex Set [OM.PC] Stat 09/17/17 15:20 CULTURE BLOOD [BC] Stat 09/17/17 15:27 CULTURE BLOOD [BC] Stat 09/17/17 15:43 CULTURE URINE [RM] Stat
[2017-09-17] MEDS ORDERED: Sodium Chloride 0.9% 1,000 ML IV SCH (14:45)
[2017-09-17] MEDS ORDERED: Naloxone 2 MG/2 ML Syringe ONE (15:20)
[2017-09-17] MEDS ORDERED: Sodium Chloride 0.9% 500 ML IV ONE ×3 (15:23→17:51)
--- NOTE | 2017-09-17 15:23 | CT ---
Head CT Technique: Multiple axial sections through the brain were obtained. Intravenous contrast was not utilized. Comparison: Prior head CT study of 09/11/17. Findings: Ventricles along with basal cisterns and sulci over the convexities are mildly prominent. Minimal diminished density is noted within the periventricular and subcortical white matters compatible with small vessel ischemic demyelination change. Several old appearing lacunar infarcts are noted within the basal ganglia. No other abnormal parenchymal densities are seen. No evidence of intracranial hemorrhage. No midline shift or mass effect is seen. Bone window settings were reviewed which shows the visualized sinuses to appear clear. No acute calvarial abnormality is identified. Impression: 1. Senescent change as noted above. No acute intracranial abnormality is seen. No significant change is seen from prior head CT exam. Diagnostic code #2
[2017-09-17] MEDS ORDERED: Iopamidol 755 Mg/ML 100 ML Bottle IVPUSH ONE (16:13)
[2017-09-17] MEDS ORDERED: Sodium Chloride 0.9% 100 ML IV SCH (16:15)
[2017-09-17] MEDS ORDERED: Iopamidol 755 MG/ML 50 ML Bottle IVPUSH ONE (16:46)
--- NOTE | 2017-09-17 17:05 | CT ---
CT chest Technique: Multiple axial sections through the chest were obtained. Intravenous contrast was utilized. Study has been performed as a pulmonary angiogram protocol. Comparison: No prior chest CT. Findings: Pulmonary arteries are opacified. No filling defects are seen to indicate pulmonary embolism. Mediastinum and hilar regions show no adenopathy or mass. Moderate coronary artery calcification is seen. Fatty infiltration is seen within the liver. Interstitial fibrosis is noted within both lungs. Mild scarring and atelectasis is felt to be present within both lung bases. Bone window settings were reviewed which shows scattered degenerative spurring within the spine. Impression: 1. No findings of pulmonary embolism. 2. Fibrosis within both lungs with areas of scarring and atelectasis within both lung bases. 3. Other incidental findings as noted above. Diagnostic code #3
[2017-09-17] MEDS ORDERED: Levofloxacin/Dextrose 5%-Water 750 MG in Premix Bag 1 BAG IV ONE (17:07)
--- NOTE | 2017-09-17 17:12 | CT ---
CT abdomen and pelvis Technique: Multiple axial sections were obtained from above the dome of the diaphragm inferiorly through the pubic symphysis. Intravenous contrast was utilized. No oral contrast has been given. Delayed images were obtained through the bladder. Comparison: Prior CT abdomen and pelvis exam of 09/11/17 is available. Findings: Interval cholecystectomy is seen from prior study. Mild increased density is seen within the gallbladder bed most likely representing postsurgical change. Fatty infiltration is seen within the liver. Spleen appears within normal limits. Adrenal glands show no nodule. Pancreas is within normal limits. Kidneys show symmetric contrast enhancement without hydronephrosis or mass. Aorta shows no aneurysmal dilatation. No retroperitoneal adenopathy or mesenteric abnormalities are seen. No pelvic mass or adenopathy is seen. Sigmoid diverticuli are seen without inflammatory change. No free fluid is identified. Appendix is not visualized with certainty. Scattered degenerative change and scoliosis is present within the spine. Small fat-containing umbilical hernia is incidentally noted. Impression: 1. Interval cholecystectomy from prior CT exam. Mild increased density within the gallbladder bed most likely postsurgical in etiology. 2. Fatty infiltration within the liver and other incidental findings. 3. Nothing acute is appreciated on CT study of the abdomen and pelvis. Diagnostic code #2
--- NOTE | 2017-09-17 17:14 | CR ---
Chest: AP view of the chest was obtained. Comparison: Prior chest x-ray dated 09/11/17. Motion artifact is seen. Slight scarring is seen within the right lower lung. Minimal scarring above the left hemidiaphragm is seen. Lungs otherwise are clear. Heart size appears within normal limits. Mild tortuosity of the thoracic aorta is seen. Bony structures are grossly intact. Surgical clips are noted within the right upper abdomen. Mild degenerative change is seen within the spine. Impression: 1. Incidental findings. Nothing acute is appreciated on AP chest x-ray. Diagnostic code #2
--- NOTE | 2017-09-17 17:14 | CR ---
Abdomen: Supine view of the abdomen was obtained. Comparison: No prior abdominal x-ray, previous abdomen and pelvis study of 09/11/17 is available. Calcifications are seen within the pelvis which are compatible with phleboliths. Degenerative change is scattered within the spine. Surgical clips are noted from prior cholecystectomy. Bowel gas pattern appears normal. Impression: 1. Incidental findings. Diagnostic code #2
[2017-09-17] MEDS ORDERED: Meropenem 1 GM in Sodium Chloride 0.9% 100 ML IV ONE (17:50)
[2017-09-17] MEDS ORDERED: Vancomycin 1 GM AdvVial ONE (18:49)
[2017-09-17] MEDS ORDERED: Sodium Chloride 0.9% 250 ML ONE (18:50)
== END 2017-09-17 18:56 ==
LOC: JD.ED 14:22
DX: A41.9 Sepsis, unspecified organism (principal); R65.20 Severe sepsis without septic shock; N17.9 Acute kidney failure, unspecified; E87.3 Alkalosis; E87.6 Hypokalemia; R40.0 Somnolence; Z79.899 Other long term (current) drug therapy; E03.9 Hypothyroidism, unspecified
CPT/HCPCS: 36415; 36600; 70450; 71010; 71275; 74000; 74177; 80053; 80306; 81001; 82803; 82962; 83605; 83690; 83880; 84443; 84484; 85025; 85379; 85610; 86140; 87040; 87086; 93005; 96361; 96374; 96375; 96376; 99285; G0480; J2185; J2310; J3370; J7030; J7040; J7050; P9612; Q9967; 93010

== ENCOUNTER 2019-02-14 17:13 | Emergency (ER) | payer MEDICARE, BC ==
[2019-02-14] MEDS ORDERED: Ketorolac 30 MG/ML SDV IM ONE (17:44)
[2019-02-14] MEDS ORDERED: Orphenadrine 100 MG Tab.ER PO ONE (17:44)
--- NOTE | 2019-02-14 17:51 | EDM.PDOC ---
ED HPI GENERAL MEDICAL PROBLEM - General Chief Complaint: Neck Problem Stated Complaint: [facility] Time Seen by Provider: 02/14/19 17:23 Source of Information: Reports: Patient, RN Notes Reviewed History Limitations: Reports: No Limitations - History of Present Illness INITIAL COMMENTS - FREE TEXT/NARRATIVE: Patient is a 68-year-old male who presents to the ED for evaluation of neck pain. The patient states that this morning he was laying in bed, went to roll over and he ended up falling out of the bed. He was able to get himself up and back into the bed, however he noticed some pain in his neck at that time. He states that the pain is better when he lays on his right side. He states he stayed in bed most of the day hoping that his pain would improve. He states that his daughter went to check on him this afternoon however attempted to get him to take him to the hospital was unable to get him out of the bed so she called the ambulance instead. He states that he has most of the pain in his neck when he strains his head forward to get up out of bed. He does not note any increased back pain or shoulder pain that is not chronic for him. He states that he was able to move his neck okay, it is just somewhat painful when his muscles are strained or turning. He further denies any chest pain or shortness of breath. He did try to take some naproxen this morning and this did not provide much pain relief. He would put his pain at a 9 out of 10 today. He does not think that he hit his head or had any loss of consciousness at this time. Neck Pain Score (Numeric/FACES): 9 - Related Data Allergies Allergy/AdvReac Type Severity Reaction Status Date / Time Iodinated Contrast- Oral and Allergy Renal Verified 02/14/19 17:39 IV Dye Insufficiency Home Meds: Home Meds Gabapentin [Neurontin] 300 mg PO TID 09/11/17 [History] Levothyroxine. 125 mcg PO DAILY 09/11/17 [History] Sertraline [Zoloft] 50 mg PO DAILY 09/11/17 [History] Orphenadrine [Norflex] 100 mg PO BID PRN #20 tab 02/14/19 [Rx] Past Medical History HEENT History: Reports: Hard of Hearing Cardiovascular History: Reports: High Cholesterol Respiratory History: Reports: COPD Gastrointestinal History: Reports: Cholelithiasis Genitourinary History: Reports: Other (See Below) Other Genitourinary History: hypogonadism Neurological History: Reports: None Psychiatric History: Reports: Anxiety Endocrine/Metabolic History: Reports: Hypothyroidism Dermatologic History: Reports: None - Infectious Disease History Infectious Disease History: Reports: C-Difficile - Past Surgical History GI Surgical History: Reports: Appendectomy, Cholecystectomy Social & Family History - Family History Family Medical History: Unobtainable - Tobacco Use Smoking Status *Q: Current Every Day Smoker Years of Tobacco use: 40 Packs/Tins Daily: 0.5 - Caffeine Use Caffeine Use: Reports: Coffee Other Caffeine Use: unable to assess - Recreational Drug Use Recreational Drug Use: No ED ROS GENERAL - Review of Systems Review Of Systems: See Below Constitutional: Reports: No Symptoms HEENT: Reports: Other (neck pain). Denies: Ear Pain Respiratory: Reports: No Symptoms Cardiovascular: Reports: No Symptoms Endocrine: Reports: No Symptoms GI/Abdominal: Reports: No Symptoms : Reports: No Symptoms Musculoskeletal: Reports: Neck Pain, Muscle Stiffness Skin: Reports: No Symptoms Neurological: Denies: Confusion, Headache, Numbness, Pre-Existing Deficit, Syncope, Tingling Psychiatric: Reports: No Symptoms ED EXAM, UPPER BACK/NECK PAIN - Physical Exam Exam: See Below Exam Limited By: No Limitations General Appearance: Alert, WD/WN, No Apparent Distress Eye Exam: Bilateral Eye: EOMI, Normal Inspection, PERRL Ears Exam: Normal External Exam, Normal Canal, Hearing Grossly Normal, Normal TMs Nose Exam: Normal Inspection Throat/Mouth Exam: Normal Inspection, Normal Lips, Normal Teeth, Normal Gums, Normal Oropharynx (Multiple flecks of dried chew in the oral mucosa.), Normal Voice, No Airway Compromise Head Exam: Atraumatic, Normocephalic Neck Exam: Full Range of Motion (pt is slow to move his head in normal ROM, but is able to do so with minimal pain at this time.), Normal Alignment, Normal Inspection, Paraspinous Muscle Tender, Stiff Neck, Tender Lateral. No: Tender Midline Nexus Criteria: No: Posterior, Midline Cervical Tenderness, Evidence of Intoxication, Altered Level of Consciousness, Focal Neurological Deficit, Painful Distraction Injuries Cardiovascular/Respiratory: Regular Rate, Rhythm, No M/R/G, Normal Peripheral Pulses, No JVD, Normal Breath Sounds, No Respiratory Distress GI/Abdominal: Normal Bowel Sounds, Soft, Non-Tender, No Distention, No Mass Back Exam: Normal Inspection, Full Range of Motion Extremities: Normal Inspection, Normal Range of Motion, Non-Tender, No Pedal Edema Neurologic: No Motor/Sensory Deficits, Alert, Normal Mood/Affect, Oriented x 3 Psychiatric: Normal Affect, Normal Mood Skin Exam: Normal Color, Warm/Dry Course - Vital Signs Last Recorded V/S: Last Vital Signs Temp 98.7 F 02/14/19 17:20 Pulse 102 H 02/14/19 17:20 Resp 20 02/14/19 17:20 BP 166/113 H 02/14/19 17:20 Pulse Ox 93 L 02/14/19 17:20 - Orders/Labs/Meds Meds: Medications Discontinued Medications Generic Name Dose Route Start Last Admin Trade Name Deven PRN Reason Stop Dose Admin Ketorolac Tromethamine 30 mg 02/14/19 17:44 02/14/19 17:55 Toradol IM 02/14/19 17:45 30 mg ONETIME ONE Administration Orphenadrine Citrate 100 mg 02/14/19 17:44 02/14/19 17:55 Norflex PO 02/14/19 17:45 100 mg ONETIME ONE Administration - Re-Assessments/Exams Free Text/Narrative Re-Assessment/Exam: 02/14/19 17:56 Patient presents to the ED for the evaluation of neck pain. Since he only fell from his bed to the floor, this is a low impact injury and I do not feel that he has hurt his neck further than just a strain or a sprain of one of the muscles in his neck. He is tender mostly laterally on palpation to his neck exam. He states that most of his pain is in his lateral neck when he brings his chin to his chest. I did order 30 mg IM Toradol, and 100 mg PO Norflex for initial management. This does not afford him some pain relief, we will entertain the thought of a neck CT for further evaluation. Patient is amenable to this plan at this time. 02/14/19 18:28 Patient states that he is able to move his neck more and is able to get around better. He is aware that this is not getting get better overnight, I will provide him with Norflex and give general conservative management with Tylenol and ibuprofen as needed for pain relief. Departure - Departure Time of Disposition: 18:29 Disposition: Home, Self-Care 01 Condition: Fair Clinical Impression: Neck muscle strain Qualifiers: Encounter type: initial encounter Qualified Code(s): S16.1XXA - Strain of muscle, fascia and tendon at neck level, initial encounter - Discharge Information *PRESCRIPTION DRUG MONITORING PROGRAM REVIEWED*: No *COPY OF PRESCRIPTION DRUG MONITORING REPORT IN PATIENT MIGUEL: No Instructions: Muscle Strain, [id number] Forms: ED Department Discharge Additional Instructions: You have been evaluated in the ED for your neck pain. It is likely that you have strained a muscle in your neck, as your symptoms were relieved by the anti-inflammatory and muscle relaxer provided in the ED today. You have been provided with a prescription for Norflex, please take one tab 2 times daily for muscle spasms. This was electronically sent to the [place] pharmacy located in the [facility] store. Please use ice/heat as tolerated to the affected area. You may take tylenol 500 mg or ibuprofen 600mg q6 hrs for pain relief. Please do so until you have a tolerable level of pain with activity. Do not exceed 4000mg tylenol, Do not exceed 3200mg ibuprofen in a 24 hour time period. This pain is not likely to get better overnight, please expect a few days of soreness. If however you are still having pain that is not relieved by the anti -inflammatories and muscle relaxers alone please seek re-evaluation and roughly 1 weeks time. Please return to ED if your symptoms should change or worsen.
== END 2019-02-14 18:45 | disposition home or self-care (01) ==
LOC: JD.ED 17:13
DX: S16.1XXA Strain of muscle, fascia and tendon at neck level, initial encounter (principal); E78.00 Pure hypercholesterolemia, unspecified; J44.9 Chronic obstructive pulmonary disease, unspecified; F41.9 Anxiety disorder, unspecified; E03.9 Hypothyroidism, unspecified; F17.210 Nicotine dependence, cigarettes, uncomplicated; Z79.899 Other long term (current) drug therapy; Z91.041 Radiographic dye allergy status; W06.XXXA Fall from bed, initial encounter
CPT/HCPCS: 96372; 99283; A9270; J1885

== ENCOUNTER 2019-02-18 15:14 | Emergency (ER) | payer MEDICARE, BC ==
[2019-02-18] MEDS ORDERED: Ketorolac 30 MG/ML SDV IM ONE (15:45)
--- NOTE | 2019-02-18 15:53 | EDM.PDOC ---
ED HPI GENERAL MEDICAL PROBLEM - General Chief Complaint: Neck Problem Stated Complaint: [facility] Time Seen by Provider: 02/18/19 15:24 Source of Information: Reports: Patient, RN Notes Reviewed History Limitations: Reports: No Limitations - History of Present Illness INITIAL COMMENTS - FREE TEXT/NARRATIVE: Patient is a 69-year-old male who presents to the ED for the evaluation of continuing neck pain. The patient was evaluated on 02/14/19 by myself and was diagnosed with a musculoskeletal strain of his neck at this time. He states he has taken the Norflex, and Tylenol roughly 4-5 times per day, and states that the pain is not much better. He states that it is hard for him to sit straight up in a chair or sit up straight much in bed. He states he is able to turn over in bed however. He denies any blurred vision, double vision, headache. He states most of his pain radiates into the left side of his neck and into his left shoulder. Quality: Reports: Same as Previous Episode Treatments [employer]: Reports: Acetaminophen, Other Medication(s) (norflex) Neck Pain Score (Numeric/FACES): 8 - Related Data Allergies Allergy/AdvReac Type Severity Reaction Status Date / Time Iodinated Contrast- Oral and Allergy Renal Verified 02/18/19 15:23 IV Dye Insufficiency Home Meds: Home Meds Gabapentin [Neurontin] 300 mg PO TID 09/11/17 [History] Levothyroxine. 125 mcg PO DAILY 09/11/17 [History] Sertraline [Zoloft] 50 mg PO DAILY 09/11/17 [History] Orphenadrine [Norflex] 100 mg PO BID PRN #20 tab 02/14/19 [Rx] Acetaminophen/HYDROcodone [Ewing 325-5 MG] 1 tab PO Q6H PRN #28 tablet 02/18/19 [Rx] Past Medical History HEENT History: Reports: Hard of Hearing Cardiovascular History: Reports: High Cholesterol Respiratory History: Reports: COPD Gastrointestinal History: Reports: Cholelithiasis Genitourinary History: Reports: Other (See Below) Other Genitourinary History: hypogonadism Musculoskeletal History: Reports: Neck Pain, Chronic Neurological History: Reports: None Psychiatric History: Reports: Anxiety Endocrine/Metabolic History: Reports: Hypothyroidism Immunologic History: Reports: None Oncologic (Cancer) History: Reports: None Dermatologic History: Reports: None - Infectious Disease History Infectious Disease History: Reports: C-Difficile - Past Surgical History GI Surgical History: Reports: Appendectomy, Cholecystectomy Male Surgical History: Reports: None Social & Family History - Family History Family Medical History: Unobtainable - Tobacco Use Years of Tobacco use: 40 Packs/Tins Daily: 0.5 - Caffeine Use Caffeine Use: Reports: Coffee Other Caffeine Use: unable to assess - Recreational Drug Use Recreational Drug Use: No ED ROS GENERAL - Review of Systems Review Of Systems: See Below Constitutional: Reports: No Symptoms HEENT: Denies: Vision Change Respiratory: Reports: No Symptoms Cardiovascular: Reports: No Symptoms Endocrine: Reports: No Symptoms GI/Abdominal: Reports: No Symptoms : Reports: No Symptoms Musculoskeletal: Reports: Neck Pain (L sided with radiation into L shoulder), Muscle Stiffness Skin: Reports: No Symptoms Neurological: Denies: Headache, Numbness, Tingling Psychiatric: Reports: No Symptoms Hematologic/Lymphatic: Reports: No Symptoms Immunologic: Reports: No Symptoms ED EXAM, UPPER BACK/NECK PAIN - Physical Exam Exam: See Below Exam Limited By: No Limitations General Appearance: Alert, WD/WN, No Apparent Distress Eye Exam: Bilateral Eye: EOMI, Normal Inspection, PERRL Ears Exam: Normal External Exam, Normal Canal, Hearing Grossly Normal, Normal TMs Throat/Mouth Exam: Normal Inspection, Normal Lips, Normal Teeth, Normal Oropharynx (Patient does have brown flecks in mouth, he states he is a smokeless tobacco user.), Normal Voice, No Airway Compromise Head Exam: Atraumatic, Normocephalic Neck Exam: Normal Alignment, Normal Inspection, Limited Range of Motion (due to pain ), Stiff Neck, Tender Lateral (Left sided tenderness) Nexus Criteria: No: Posterior, Midline Cervical Tenderness, Evidence of Intoxication, Altered Level of Consciousness, Focal Neurological Deficit, Painful Distraction Injuries Cardiovascular/Respiratory: Regular Rate, Rhythm, Normal Peripheral Pulses, Normal Breath Sounds, No Respiratory Distress Extremities: Normal Inspection, Normal Capillary Refill Neurologic: No Motor/Sensory Deficits, Alert, Normal Mood/Affect, Oriented x 3 Psychiatric: Normal Affect, Normal Mood Skin Exam: Normal Color, Warm/Dry Course - Vital Signs Last Recorded V/S: Last Vital Signs Temp 98.1 F 02/18/19 15:27 Pulse 107 H 02/18/19 15:37 Resp 16 02/18/19 15:27 BP 148/97 H 02/18/19 15:37 Pulse Ox 95 02/18/19 15:27 - Orders/Labs/Meds Meds: Medications Discontinued Medications Generic Name Dose Route Start Last Admin Trade Name Deven PRN Reason Stop Dose Admin Hydromorphone HCl 1 mg 02/18/19 16:59 02/18/19 17:24 Dilaudid IM 02/18/19 17:00 1 mg ONETIME ONE Administration Ketorolac Tromethamine 30 mg 02/18/19 15:45 02/18/19 15:51 Toradol IM 02/18/19 15:46 30 mg ONETIME ONE Administration - Re-Assessments/Exams Free Text/Narrative Re-Assessment/Exam: 02/18/19 15:53 Patient presents to the ED for the evaluation of continuing neck pain. He has only been taking Tylenol and the Norflex for pain relief. He has not taken any real anti-inflammatory type medications that should provide relief from his pain at this time. I have ordered a cervical CT for further evaluation. I did order 30 mg IM Toradol for pain relief at this time. 02/18/19 16:40 Dr. Ryan, our radiologist did call and inform me that the gentleman does in fact have a C2 fracture, this is oblique across the body, and is slightly displaced by 3 mm. I have pushed the CTs to [facility] for neuro surgeon consult for management. I did order 1 mg IM dilaudid for pain relief. 02/18/19 17:28 Dr. Mercer, neurosurgeon at [facility] was consulted on the patient's case, he states this is a type III stable C2 fracture, he recommends the patient be placed in aspirin neck collar and that the injury does not need surgery. He would like to stress that the patient aware of the neck collar at all times if possible. He would like to see the patient for follow-up in around 2 weeks for a re-x-ray of his neck to make sure that the fracture is healing appropriately. I will relay this information to the patient. Departure - Departure Time of Disposition: 17:42 Disposition: Home, Self-Care 01 Condition: Fair Clinical Impression: C2 cervical fracture Qualifiers: Encounter type: initial encounter Fracture type: closed Fracture morphology: other fracture Fracture alignment: displaced Qualified Code(s): S12.190A - Other displaced fracture of second cervical vertebra, initial encounter for closed fracture - Discharge Information *PRESCRIPTION DRUG MONITORING PROGRAM REVIEWED*: No *COPY OF PRESCRIPTION DRUG MONITORING REPORT IN PATIENT MIGUEL: No Instructions: Cervical Collar, Vertebral Fracture, [id number] Forms: ED Department Discharge Additional Instructions: You have been evaluated in the ED today for your continuing neck pain. Your CT demonstrated a stable fracture of your C2 vertebrae. Your case was discussed with neurosurgery at [facility]. They recommend that you stay in the [place] collar at all times if possible. Dr. Mercer is requesting that you follow up with him in roughly 2 weeks time. Please call [phone] to speak with his nurse and schedule an appointment for then. You have been provided with a prescription for Ewing 5/325, please take 1 to 2 tabs every 6 hours as needed for pain. This has been electronically sent to the [place] [facility] located in the [employer] [facility]. You may take 500 mg Tylenol or 600 mg ibuprofen every 6 hours as needed for further pain relief. Please do not exceed 4000 mg Tylenol or 2400 mg ibuprofen in a 24-hour time span. Please return to the ED if your symptoms should change or worsen.
[2019-02-18] MEDS ORDERED: HYDROmorphone 1 MG/ML Syringe IM ONE (16:59)
--- NOTE | 2019-02-18 17:19 | CT ---
CT cervical spine Technique: Multiple axial sections were obtained from above C1 inferiorly to the top of T3. Reconstructed sagittal and coronal images were reviewed. Comparison: No prior cervical spine imaging. Findings: There is an acute fracture being seen within the body of C2. Fracture obliquely involves the upper body of the C2 with additional fracture line extending more vertically to involve the left articular mass at its base. There is mild anterior displacement of the dens in relation to the body of C2 by approximately 3 mm. Diffuse disc space narrowing is seen throughout the cervical spine. Degenerative spurring is noted throughout the uncovertebral joints within the cervical spine. No additional fracture is appreciated. Degenerative change scattered throughout the apophyseal joints. Diffuse anterior osteophytes are seen as well as posterior osteophytes throughout the cervical spine. Numerous levels of neural foraminal stenosis is noted. Impression: 1. Slightly complex fracture involving the body and left articular mass of C2. Mild anterior displacement of the dens in relation to the body of C2 by about 3 mm. 2. Diffuse degenerative change without other acute abnormality. Diagnostic code #5 C2 fracture was discussed with ordering healthcare provider by phone at approximately 4:42 PM MST
== END 2019-02-18 18:00 | disposition home or self-care (01) ==
LOC: JD.ED 15:14
DX: S12.190A Other displaced fracture of second cervical vertebra, initial encounter for closed fracture (principal); E78.00 Pure hypercholesterolemia, unspecified; J44.9 Chronic obstructive pulmonary disease, unspecified; E03.9 Hypothyroidism, unspecified; F41.9 Anxiety disorder, unspecified; Z91.041 Radiographic dye allergy status; Z79.899 Other long term (current) drug therapy; X58.XXXA Exposure to other specified factors, initial encounter
CPT/HCPCS: 72125; 96372; 99284; J1170; J1885; 99283

== ENCOUNTER 2019-02-28 17:54 | Emergency (ER) | payer MEDICARE, BC ==
[2019-02-28] MEDS ORDERED: HYDROmorphone 0.5 MG/0.5 ML Syringe IM ONE (18:22)
[2019-02-28] MEDS ORDERED: Ketorolac 30 MG/ML SDV IM ONE (18:22)
--- NOTE | 2019-02-28 18:51 | EDM.PDOC ---
ED HPI GENERAL MEDICAL PROBLEM - General Chief Complaint: Neck Problem Stated Complaint: NECK INJURY RE-CHECK Time Seen by Provider: 02/28/19 18:05 Source of Information: Reports: Patient History Limitations: Reports: No Limitations - History of Present Illness INITIAL COMMENTS - FREE TEXT/NARRATIVE: 69 y/o male presents to ER with cc increased neck pain. He was seen here on 02/18 for neck pain and was diagnosis with stable fracture of the C2 vertebrae. He was discharge with [place] collar which he "cut down so he could eat" 2 days ago. He denies any numbness or tingling, weakness or fatigue. He reports that he ran out pain medication 2 days ago. He is scheduled to see the neurologist in 4 days for follow up. He is here because he is out of pain medication and is hurting worse. Onset Date: 02/26/19 Onset Time: 09:00 Duration: Getting Worse Location: Reports: Neck Quality: Reports: Ache Severity: Mild Improves with: Reports: Medication Worsens with: Reports: Movement Associated Symptoms: Denies: Diaphoresis, Fever/Chills, Nausea/Vomiting, Weakness Neck Pain Score (Numeric/FACES): 9 - Related Data Allergies Allergy/AdvReac Type Severity Reaction Status Date / Time Iodinated Contrast- Oral and Allergy Renal Verified 02/18/19 15:23 IV Dye Insufficiency Home Meds: Home Meds Gabapentin [Neurontin] 300 mg PO TID 09/11/17 [History] Levothyroxine. 125 mcg PO DAILY 09/11/17 [History] Sertraline [Zoloft] 50 mg PO DAILY 09/11/17 [History] Orphenadrine [Norflex] 100 mg PO BID PRN #20 tab 02/14/19 [Rx] Acetaminophen/HYDROcodone [[place] 325-5 MG] 1 tab PO Q6H PRN #28 tablet 02/18/19 [Rx] Hydrocodone/Acetaminophen [[place] 5-325 Tablet] 1 each PO Q6HR PRN 4 Days #12 tablet 02/28/19 [Rx] Past Medical History HEENT History: Reports: Hard of Hearing Cardiovascular History: Reports: High Cholesterol Respiratory History: Reports: COPD Gastrointestinal History: Reports: Cholelithiasis Genitourinary History: Reports: Other (See Below) Other Genitourinary History: hypogonadism Musculoskeletal History: Reports: Neck Pain, Chronic Neurological History: Reports: None Psychiatric History: Reports: Anxiety Endocrine/Metabolic History: Reports: Hypothyroidism Immunologic History: Reports: None Oncologic (Cancer) History: Reports: None Dermatologic History: Reports: None - Infectious Disease History Infectious Disease History: Reports: C-Difficile - Past Surgical History Head Surgeries/Procedures: Reports: None GI Surgical History: Reports: Appendectomy, Cholecystectomy Male Surgical History: Reports: None Social & Family History - Family History Family Medical History: Unobtainable - Tobacco Use Smoking Status *Q: Never Smoker - Caffeine Use Caffeine Use: Reports: Coffee Other Caffeine Use: unable to assess - Recreational Drug Use Recreational Drug Use: No ED ROS GENERAL - Review of Systems Review Of Systems: See Below Constitutional: Denies: Fever, Chills HEENT: Reports: No Symptoms Respiratory: Denies: Shortness of Breath Cardiovascular: Denies: Chest Pain Endocrine: Denies: Fatigue GI/Abdominal: Reports: No Symptoms : Reports: No Symptoms Musculoskeletal: Reports: Neck Pain Skin: Reports: No Symptoms Neurological: Reports: Confusion, Dizziness, Headache, Numbness, Paresthesia Psychiatric: Reports: No Symptoms Hematologic/Lymphatic: Reports: No Symptoms Immunologic: Reports: No Symptoms ED EXAM, UPPER BACK/NECK PAIN - Physical Exam Exam: See Below Exam Limited By: Respiratory Distress General Appearance: Alert, WD/WN, No Apparent Distress Eye Exam: Bilateral Eye: EOMI, PERRL Neck Exam: Normal Alignment, Normal Inspection, Limited Range of Motion (due to fracture), Paraspinous Muscle Tender Nexus Criteria: No: Focal Neurological Deficit Neurologic: No Motor/Sensory Deficits, Alert, Normal Mood/Affect, Oriented x 3 Psychiatric: Normal Affect, Normal Mood Skin Exam: Normal Color, Warm/Dry Lymphatic: No Adenopathy Course - Vital Signs Last Recorded V/S: Last Vital Signs Temp 97.2 F 02/28/19 18:05 Pulse 103 H 02/28/19 18:35 Resp 16 02/28/19 18:35 BP 174/91 H 02/28/19 18:35 Pulse Ox 96 02/28/19 18:05 - Orders/Labs/Meds Meds: Medications Discontinued Medications Generic Name Dose Route Start Last Admin Trade Name Freq PRN Reason Stop Dose Admin Hydromorphone HCl 1 mg 02/28/19 18:22 02/28/19 18:29 Dilaudid IM 02/28/19 18:23 1 mg ONETIME ONE Administration Ketorolac Tromethamine 30 mg 02/28/19 18:22 02/28/19 18:30 Toradol IM 02/28/19 18:23 30 mg ONETIME ONE Administration - Re-Assessments/Exams Free Text/Narrative Re-Assessment/Exam: 02/28/19 18:53 states he is feeling better after receiving Toradol and Dilaudid and new [place] collar. I will discharge home with small amount of [place] for pain. I instructed the patient not to drink, drive or operate machinery while taking this medication. Instructed to follow up with neurologist as scheduled. Instructed to return to ER for any new or acute worsening symptoms. He verbalized understanding and is comfortable with plan for discharge. He is stable at time of discharge. Departure - Departure Time of Disposition: 18:55 Disposition: Home, Self-Care 01 Condition: Good Clinical Impression: C2 cervical fracture Qualifiers: Encounter type: sequela Fracture type: closed Fracture morphology: other fracture Fracture alignment: displaced Qualified Code(s): S12.190S - Other displaced fracture of second cervical vertebra, sequela - Discharge Information Prescriptions: Hydrocodone/Acetaminophen [[place] 5-325 Tablet] 1 each PO Q6HR PRN 4 Days #12 tablet PRN Reason: neck pain Instructions: Vertebral Fracture, [id number], Pain Medicine Instructions, [id number], Cervical Collar Referrals: PCP,None [Primary Care Provider] - Forms: ED Department Discharge Additional Instructions: You were seen for increased neck pain after being out of your pain medication and adjusting your [place] collar. You have been given [place] for pain. Do not drink, drive or operate machinery while taking this mediation. Follow up with Dr. Mills next week as scheduled. Return to the ER for any new or acute worsening symptoms.
== END 2019-02-28 19:07 | disposition home or self-care (01) ==
LOC: JD.ED 17:54
DX: S12.190D Other displaced fracture of second cervical vertebra, subsequent encounter for fracture with routine healing (principal); E78.00 Pure hypercholesterolemia, unspecified; J44.9 Chronic obstructive pulmonary disease, unspecified; E03.9 Hypothyroidism, unspecified; Z91.041 Radiographic dye allergy status; Z79.899 Other long term (current) drug therapy; X58.XXXD Exposure to other specified factors, subsequent encounter
CPT/HCPCS: 96372; 99283; J1170; J1885